=== PATIENT | female | born 1980 | race Caucasian/White ===

== ENCOUNTER 2017-06-26 04:07 | Emergency (ER) | payer OTHER ==
[~2017-06-26] VITALS: Ht 175.3 cm; Wt 78.8 kg
[2017-06-26 04:17] VITALS: TEMP 36.9; Ht 175.3 cm; Wt 78.8 kg
[2017-06-26] MEDS ORDERED: SODIUM CHLORIDE 0.9% 1000ML 1,000 ML IV STA (04:26)
[2017-06-26] MEDS ORDERED: ONDANSETRON INJ 2 MG/ML 2 ML VIAL IV STA (04:26)
[2017-06-26 05:27] LABS: BASO % 0.2 %; BASO ABS # 0.01 K/uL (0-0.2); COMPLETE YES; EOS % 0.7 %; HEMATOCRIT 33.9 % (37-47); IG% 0.2 %; LYMPH ABS # 0.38 K/uL (1.2-3.4); MEAN CELL VOLUME 90.9 fL (80-100); MEAN CORPUSCULAR HEMOGLOBIN 31.9 pg (25-34); MEAN CORPUSCULAR HGB CONC 35.1 g/dl (32-36); MEAN PLATELET VOLUME 9.7 fL (7.4-10.4); MONO % 7.5 %; NEUT % 84.4 %; PLATELET COUNT 115 K/uL (130-400); RED BLOOD COUNT 3.73 M/uL (4.2-5.4); WHITE BLOOD COUNT 5.46 K/uL (4.8-10.8)
[2017-06-26 05:51] LABS: BUN/CREATININE RATIO 12.5 (10-20); CALCIUM 9.5 mg/dl (8.5-10.1); CREATININE 0.79 mg/dl (0.60-1.20); POTASSIUM 3.5 mmol/L (3.5-5.1)
[2017-06-26] MEDS ORDERED: IBUP-1050 PO (05:54)
[2017-06-26] MEDS ORDERED: KETOROLAC TROMETHAMINE 30 MG/ML VIAL IV STA (06:00)
[2017-06-26] MEDS ORDERED: ONDA4TAB10 SL (06:05)
--- NOTE | 2017-06-26 06:06 | EMERGENCY ROOM VISIT NOTE ---
History Report prepared by Surjit: Harvinder Mccabe Under the Supervision of: Dr. Juan Velez D.O. First contact with patient: 04:23 Chief Complaint: FLU LIKE SX Stated Complaint: ABD PAIN,NAUSEA,VOMITING,FEVER, History of Present Illness The patient is a 36 year old female who presents to the Emergency Room with complaints of a persistent illness beginning a few days ago. Her symptoms include abdominal pain, vomiting, nausea, and fevers. She has a history of mono and states that her current symptoms feel similar. The patient has a history of a hysterectomy and denies any chance of . She notes that her urine appears dark. She denies any diarrhea. The patient states that she has not been able to keep down food or drink. Source of History: patient Onset: a few days ago Quality: other (illness) Timing: other (persistent) Associated Symptoms: + fevers, + nausea, + vomiting, + abdominal pain, No diarrhea Review of Systems See HPI for pertinent positives and negatives. A total of ten systems were reviewed and were otherwise negative. 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 (14) Migraines (15) Nausea, vomiting and diarrhea (16) Right arm cellulitis (17) Scoliosis (18) Stomach ulcer Surgical Problems: (1) H/O dilation and curettage (2) History of abdominoplasty Family History Diabetes mellitus FH: heart disease Hypertension Kidney disease Seizures Social History Smoking Status: Never Smoker Alcohol Use: none Drug Use: none Marital Status: in relationship Housing Status: lives with family Occupation Status: employed Current/Historical Medications Scheduled Ondasetron Odt (Zofran Odt), 4 MG SL Q6H Scheduled PRN Ibuprofen (Advil), 400 MG PO Q4 PRN for Pain Allergies Coded Allergies: Latex (Verified Allergy, Severe, rash and itching, 08/28/16) Tramadol (Verified Allergy, Intermediate, Seizure, 08/28/16) Morphine (Verified Allergy, Mild, SEVERE HEADACHE, 08/28/16) Phenobarbital (Verified Allergy, Unknown, RASH, 08/28/16) [place] (Verified Allergy, Unknown, ANAPHYLAXIS, 08/28/16) Acetaminophen (Verified Adverse Reaction, Mild, STOMACH IRRITATION, ) ULCERS Physical Exam Vital Signs Date Time Temp Pulse Resp B/P (MAP) Pulse Ox O2 Delivery O2 Flow Rate FiO2 06/26/17 05:14 92 18 125/91 99 Room Air 06/26/17 04:39 92 06/26/17 04:17 36.9 99 18 130/88 100 Room Air Physical Exam GENERAL: Awake, alert, well-appearing, in no distress HENT: Normocephalic, atraumatic. Oropharynx unremarkable. EYES: Normal conjunctiva. Sclera non-icteric. NECK: Supple. No nuchal rigidity. FROM. No JVD. RESPIRATORY: Clear to auscultation. CARDIAC: Regular rate, normal rhythm. Extremities warm and well perfused. Pulses equal. ABDOMEN: Soft, non-distended. No tenderness to palpation. No rebound or guarding. No masses. RECTAL: Deferred. MUSCULOSKELETAL: Chest examination reveals no tenderness. The back is symmetrical on inspection without obvious abnormality. There is no CVA tenderness to palpation. No joint edema. LOWER EXTREMITIES: Calves are equal size bilaterally and non-tender. No edema. No discoloration. NEURO: Normal sensorium. No sensory or motor deficits noted. SKIN: No rash or jaundice noted. Medical Decision & Procedures Laboratory Results 06/26/17 05:00 Red Blood Count 3.73, Mean Corpuscular Volume 90.9, Mean Corpuscular Hemoglobin 31.9, Mean Corpuscular Hemoglobin Concent 35.1, Mean Platelet Volume 9.7, Neutrophils (%) (Auto) 84.4, Lymphocytes (%) (Auto) 7.0, Monocytes (%) (Auto) 7.5, Eosinophils (%) (Auto) 0.7, Basophils (%) (Auto) 0.2, Neutrophils # (Auto) 4.61, Lymphocytes # (Auto) 0.38, Monocytes # (Auto) 0.41, Eosinophils # (Auto) 0.04, Basophils # (Auto) 0.01 06/26/17 05:00 Test 06/26/17 04:26 06/26/17 05:00 White Blood Count 5.46 K/uL (4.8-10.8) Red Blood Count 3.73 M/uL (4.2-5.4) Hemoglobin 11.9 g/dL (12.0-16.0) Hematocrit 33.9 % (37-47) Mean Corpuscular Volume 90.9 fL (80-100) Mean Corpuscular Hemoglobin 31.9 pg (25-34) Mean Corpuscular Hemoglobin Concent 35.1 g/dl (32-36) Platelet Count 115 K/uL (130-400) Mean Platelet Volume 9.7 fL (7.4-10.4) Neutrophils (%) (Auto) 84.4 % Lymphocytes (%) (Auto) 7.0 % Monocytes (%) (Auto) 7.5 % Eosinophils (%) (Auto) 0.7 % Basophils (%) (Auto) 0.2 % Neutrophils # (Auto) 4.61 K/uL (1.4-6.5) Lymphocytes # (Auto) 0.38 K/uL (1.2-3.4) Monocytes # (Auto) 0.41 K/uL (0.11-0.59) Eosinophils # (Auto) 0.04 K/uL (0-0.5) Basophils # (Auto) 0.01 K/uL (0-0.2) RDW Standard Deviation 42.7 fL (36.4-46.3) RDW Coefficient of Variation 12.9 % (11.5-14.5) Immature Granulocyte % (Auto) 0.2 % Immature Granulocyte # (Auto) 0.01 K/uL (0.00-0.02) Anion Gap 5.0 mmol/L (3-11) Est Creatinine Clear Calc Drug Dose 103.9 ml/min Estimated GFR () 112.4 Estimated GFR (Non- 97.0 BUN/Creatinine Ratio 12.5 (10-20) Calcium Level 9.5 mg/dl (8.5-10.1) Total Bilirubin 1.0 mg/dl (0.2-1) Direct Bilirubin 0.2 mg/dl (0-0.2) Aspartate Amino Transf (AST/SGOT) 56 U/L (15-37) Alanine Aminotransferase (ALT/SGPT) 47 U/L (12-78) Alkaline Phosphatase 64 U/L (45-117) Total Protein 7.3 gm/dl (6.4-8.2) Albumin 3.5 gm/dl (3.4-5.0) Lipase 64 U/L (73-393) Laboratory results reviewed by me Medications Administered Medications (Trade) Dose Ordered Sig/Radha Route Start Time Stop Time Status Last Admin Dose Admin Sodium Chloride 1,000 ml @ 999 mls/hr Q1H1M STAT IV 06/26/17 04:26 06/26/17 05:26 DC 06/26/17 05:15 999 MLS/HR Ondansetron HCl (Zofran Inj) 4 mg NOW STAT IV 06/26/17 04:26 06/26/17 04:28 DC 06/26/17 05:15 4 MG ED Course 0424: The patient was evaluated in room A10. A complete history and physical exam was performed. 0426: Ordered Zofran Inj 4 mg IV, Sodium Chloride 1000 ml @ 999 mls/hr IV. 0600: I reevaluated the patient. Discussed results and discharge instructions: she verbalized understanding and agreement. The patient is ready for discharge. Medical Decision Differential diagnoses include but are not limited to; gastritis, gastroenteritis, UTI, dehydration, and metabolic derangement. Patient reevaluated resting in no distress states slight left flank pain. Vital signs are absolutely normal. Patient has a normal white blood cell count normal electrolytes and normal lactic acid I do not suspect sepsis. Patient's prior records were reviewed she has an extensive history. I reviewed the evaluation with the patient at bedside at 6:05 AM Patient urine dip was negative for any signs of infection. Patient will be discharged with Zofran and requires follow-up with her primary care physician this week Impression Primary Impression: Nausea & vomiting Additional Impression: Abdominal pain Scribe Attestation The scribe's documentation has been prepared under my direction and personally reviewed by me in its entirety. I confirm that the note above accurately reflects all work, treatment, procedures, and medical decision making performed by me. Departure Information Dispostion Home / Self-Care Prescriptions Ondasetron Odt (ZOFRAN ODT) 4 Mg Tab 4 MG SL Q6H for Nausea, #10 TAB Prov: Juan Velez, DO 06/26/17 Referrals Augusta Barakat (PCP) Patient Instructions ED Nausea Vomiting, My [facility] Health Problem Qualifiers
[2017-06-26] MEDS ORDERED: ONDANSETRON HOME PACK 4MG OD TAB PO ONE (06:15)
[2017-06-26 06:18] VITALS: BP 129/91; PULSE 84; O2SAT 97
[2017-06-26 06:24] LABS: URINE APPEARANCE CLEAR (CLEAR); URINE BILIRUBIN NEG (NEG); URINE COLOR YELLOW; URINE NITRITE NEG (NEG); URINE PH 6.5 (4.5-7.5); URINE SPECIFIC GRAVITY 1.014 (1.000-1.030); UROBILINOGEN NEG (NEG); ZZUR CULT IF INDIC CLEAN CATCH NO
[2017-06-26 06:42] LABS: MANUAL MICROSCOPIC REQUIRED? NO; REVIEW REQ? NO
== END 2017-06-26 06:23 | disposition home or self-care (01) ==
LOC: C.EDB 04:08 → C.EDA 06:23
DX: R11.2 Nausea with vomiting, unspecified (principal); R10.9 Unspecified abdominal pain; Z90.710 Acquired absence of both cervix and uterus; Z83.3 Family history of diabetes mellitus; Z82.49 Family history of ischemic heart disease and other diseases of the circulatory system; Z82.0 Family history of epilepsy and other diseases of the nervous system

== ENCOUNTER 2017-07-12 16:18 | Emergency (ER) | payer OTHER ==
[~2017-07-12] VITALS: Ht 175.3 cm; Wt 78.0 kg
[~2017-07-12 16:18] MED LIST: IBUP-1050 PO; ONDA4TAB10 SL
[2017-07-12 16:38] VITALS: Ht 175.3 cm; Wt 78.0 kg
[2017-07-12] MEDS ORDERED: SODIUM CHLORIDE 0.9% 1000ML 2,000 ML IV STA (16:56)
[2017-07-12] MEDS ORDERED: ACETAMINOPHEN IV 1,000 MG in EMPTY BAG 0 ML IV STA (16:56)
[2017-07-12] MEDS ORDERED: ONDANSETRON INJ 2 MG/ML 2 ML VIAL IV STA (16:56)
[2017-07-12] MEDS ORDERED: SODIUM CHLORIDE 0.9% 1000ML 1,000 ML IV STA (16:56)
[2017-07-12 17:19] LABS: HEMATOCRIT 28.5 % (37-47); MEAN CELL VOLUME 90.5 fL (80-100); MEAN CORPUSCULAR HEMOGLOBIN 30.5 pg (25-34); MEAN CORPUSCULAR HGB CONC 33.7 g/dl (32-36); MEAN PLATELET VOLUME 9.1 fL (7.4-10.4); PLATELET COUNT 214 K/uL (130-400); RED BLOOD COUNT 3.15 M/uL (4.2-5.4); WHITE BLOOD COUNT 8.91 K/uL (4.8-10.8)
[2017-07-12 17:30] LABS: BUN/CREATININE RATIO 13.4 (10-20); CREATININE 0.67 mg/dl (0.60-1.20); POTASSIUM 3.8 mmol/L (3.5-5.1)
[2017-07-12 17:33] LABS: ALB/GLOB RATIO 0.8 (0.9-2); URINE APPEARANCE CLEAR (CLEAR); URINE BILIRUBIN NEG (NEG); URINE COLOR YELLOW; URINE NITRITE NEG (NEG); URINE PH 5.5 (4.5-7.5); URINE SPECIFIC GRAVITY 1.013 (1.000-1.030); UROBILINOGEN NEG (NEG)
[2017-07-12 17:38] LABS: MANUAL MICROSCOPIC REQUIRED? NO; REVIEW REQ? NO
--- NOTE | 2017-07-12 17:41 | DIAGNOSTIC IMAGING REPORT ---
CHEST ONE VIEW PORTABLE HISTORY: FEVER COMPARISON: Chest 08/28/2016. FINDINGS: The lungs are clear. Cardiac silhouette is top normal in size. This remains unchanged. No pleural effusions. No pneumothorax. IMPRESSION: No acute process. Electronically signed by: Mir Moore M.D. 07/12/2017 5:39 PM Dictated Date/Time: 07/12/2017 5:38 PM
[2017-07-12 17:50] LABS: BASO % 0.2 %; BASO ABS # 0.02 K/uL (0-0.2); COMPLETE YES; IG% 0.6 %; LYMPH % 5.3 %; LYMPH ABS # 0.47 K/uL (1.2-3.4); MONO % 4.6 %; NEUT % 89.3 %
[2017-07-12] MEDS ORDERED: HYDROmorphone INJ 0.5 MG/0.5 ML SYR IV STA (17:55)
[2017-07-12] MEDS ORDERED: OPTIRAY 320 IV PRN (18:15)
--- NOTE | 2017-07-12 18:35 | DIAGNOSTIC IMAGING REPORT ---
CT ABD/PELVIS IV CONTRAST ONLY CLINICAL HISTORY: FEVER, ABD PAIN COMPARISON STUDY: 09/02/2016 TECHNIQUE: Following the IV administration of 94 mL of Optiray-320, CT scan of the abdomen and pelvis was performed from the lung bases to the proximal femurs. Images are reviewed in the axial, sagittal, and coronal planes. IV contrast was administered without complication. A dose lowering technique was utilized adhering to the principles of ALARA. CT DOSE: 502.23 mGy.cm FINDINGS: Lower chest: There are minor dependent atelectatic changes Liver: The contrast-enhanced liver is normal in size, contour, and attenuation. There is no intrahepatic biliary ductal dilatation. The hepatic veins and portal veins are patent. Gallbladder: Unremarkable. Spleen: There is persistent splenomegaly (15 cm), previously 14 cm. Pancreas: Unremarkable. Adrenal glands: Unremarkable. Kidneys: There is a stable left renal hypodensity likely representing a cyst. No solid renal masses are visualized. Bowel: There are no transition zones indicate bowel obstruction. The appendix appears normal. There is no acute diverticulitis. Peritoneum: There is no intraperitoneal free air or abdominal ascites. Vasculature: The abdominal aorta is normal in course and caliber. Adenopathy: None. Pelvic viscera: The uterus appears surgically absent. There is slight indistinctness of the right ovary. Mild periovarian edema cannot be excluded. Skeletal structures: No destructive osseous lesions are seen. IMPRESSION: 1. No evidence of bowel obstruction. No evidence of free air 2. Normal appendix. No evidence of acute diverticulitis 3. Splenomegaly (15 cm) 4. Slight indistinctness of the right ovary. Mild right periovarian edema cannot be excluded Electronically signed by: Hilario Brian M.D. 07/12/2017 6:33 PM Dictated Date/Time: 07/12/2017 6:26 PM
[2017-07-12 18:58] VITALS: TEMP 37.1
[2017-07-12] MEDS ORDERED: DAPTOmycin IV 500 MG in SODIUM CHLORIDE 0.9% 50ML 50 ML IV STA (19:17)
[2017-07-12] MEDS ORDERED: PIPERACILLIN/TAZOBACTAM 4.5 GM/100ML D5W IV STA (19:17)
[2017-07-12] MEDS ORDERED: VANCOMYCIN INJ 1,500 MG in SODIUM CHLORIDE 0.9% 500ML 500 ML IV STA (19:30)
[2017-07-12 19:47] LABS: PROTHROMBIN TIME (PATIENT) 11.1 SECONDS (9.0-12.0)
[2017-07-12] MEDS ORDERED: GADAVIST IV PRN (22:00)
--- NOTE | 2017-07-12 22:11 | DIAGNOSTIC IMAGING REPORT ---
MRI LUMBAR SPINE COMBINATION CLINICAL HISTORY: FEVER, BACK PAIN HISTORY OF MALT LYMPHOMA, HISTORY OF CERVICAL CARCINOMA. TECHNIQUE: Sagittal and axial T1, T2 and STIR images were obtained. Imaging was performed before and after the administration of 7.7 cc of intravenous Gadavist COMPARISON STUDY: CT scan of the abdomen pelvis dated 07/12/2017 OBSERVATIONS: There is diffuse decreased signal throughout the vertebral bodies. This indicates a hypercellular marrow. This could be secondary to neoplasm, anemia, or be secondary to drug-induced marrow stimulation. L1-2: No disc protrusions or extrusions. No evidence of spinal canal or neural foraminal compromise. L2-3: No disc protrusions or extrusions. No evidence of spinal canal or neural foraminal compromise. L3-4: No disc protrusions or extrusions. No evidence of spinal canal or neural foraminal compromise. L4-5: There is a minimal circumferential disc bulge. There is no significant spinal or foraminal stenosis. L5-S1: No disc protrusions or extrusions. No evidence of spinal canal or neural foraminal compromise. The conus medullaris and cauda equina appear normal. Postcontrast images reveal no pathologically enhancing masses. There are no findings to indicate discitis or osteomyelitis. There are no findings to indicate an epidural abscess. IMPRESSION: 1. No evidence of focal disc herniation 2. No evidence of discitis or osteomyelitis. 3. No evidence of epidural abscess 4. Diffusely decreased T1 signal throughout the marrow. This indicates an abnormally hypercellular marrow. Clinical correlation in this regard is advocated Electronically signed by: Hilario Brian M.D. 07/12/2017 10:10 PM Dictated Date/Time: 07/12/2017 10:04 PM
--- NOTE | 2017-07-12 22:38 | EMERGENCY ROOM VISIT NOTE ---
History First contact with patient: 16:43 Chief Complaint: SHORTNESS OF BREATH Stated Complaint: NAUSEA,VOMITING,SPASM IN BACK OF NEC,SOB Nursing Triage Summary: Patient presents with a 1.5 day history of generalized malaise b/l flank/back pain, diffuse abdominal pain, nausea/vomiting and fevers. Negative diarrhea. Negative cough. Patient tearful during exam. Scabs on left arm consistent with injection points observed. Additional "cat scratches" are noted on right arm. History of Present Illness Patient is a 36-year-old white female who presents emergency department for evaluation of abdominal pain, back and neck pain, nausea, vomiting and malaise 1 day. Patient states her symptoms started yesterday with back and abdominal pain. They got progressively worse while she was at work today. She describes pain across her low back, and in the posterior aspect of her neck, and diffuse pain across the abdomen. While at work should be and experienced hot flashes, and became nauseous and vomited several times. She reports yellow vomitus, no diarrhea. She's been using ibuprofen 800 mg for her pain, her last dose was about 4-1/2 hours ago. She did not actually record her temperature with a thermometer. She notes that her urine is dark but denies dysuria, frequency or urgency. She denies any cold or upper respiratory symptoms, no cough or sputum production. She feels slightly short of breath but attributes this to her pain. She did take Zofran about one hour ago. She denies any sick contacts. No skin rashes or lesions other than some scratches on her arms from her cat. She denies IV drug use. No recent insect or tick bites. She rates her discomfort an 8/10. She has been followed by her PCP recently for abnormal LFTs , she reports she is scheduled to see GI next month. Review of Systems Review of systems as per HPI. All other systems reviewed were negative. 10 systems reviewed. 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 See Problem List. Family History Diabetes mellitus FH: heart disease Hypertension Kidney disease Seizures Social History Smoking Status: Never Smoker Alcohol Use: none Drug Use: none Marital Status: in relationship Housing Status: lives with family Occupation Status: employed Current/Historical Medications Scheduled Ondasetron Odt (Zofran Odt), 4 MG SL Q6H Physical Exam Vital Signs Date Time Temp Pulse Resp B/P (MAP) Pulse Ox O2 Delivery O2 Flow Rate FiO2 07/12/17 22:26 98 12 90/42 98 07/12/17 21:04 74 10 108/78 98 07/12/17 20:36 75 98 07/12/17 20:01 90 20 100 07/12/17 19:31 100 22 99 07/12/17 19:29 105/66 07/12/17 19:01 91 20 99 07/12/17 18:58 37.1 74 20 114/70 99 07/12/17 18:56 115/63 07/12/17 17:55 103 07/12/17 17:52 94 07/12/17 17:48 99 20 98 07/12/17 17:37 104 20 112/69 100 Room Air 07/12/17 17:36 112/69 07/12/17 17:18 105 21 98 07/12/17 16:57 122 07/12/17 16:50 138/72 07/12/17 16:38 39.3 116 20 109/62 98 Room Air Physical Exam CONSTITUTIONAL: Patient is a tearful, uncomfortable appearing 36-year-old white female who is awake and alert and ill although nontoxic in appearance. Temperature 39.3C orally. Pulse rate 116 beats per minute, oxygen saturation 98% on room air. EYES: Pupils equal, round, reactive to light and accommodation. EOMs intact without nystagmus. Sclera are anicteric. ENT: Tympanic membranes intact, with normal landmarks. External canals are clear. Oral and nasopharynx are clear. Mucous membranes are moist, no lesions , tongue and gums appear normal. NECK: No bruits auscultated. Supple without lymphadenopathy. No thyromegaly. No meningeal signs. Full active range of motion without discomfort. CARDIOVASCULAR: Tachycardic rate and rhythm, with normal S1 and S2, no murmur or gallop or rub is heard. No carotid bruits auscultated. No JVD. Peripheral pulses easy to palpable. RESPIRATORY: Breath sounds equal and clear to auscultation without wheezes, rales, or rhonchi heard. Full and equal chest expansion without accessory muscle use or retractions. GI: Bowel sounds are present. Abdomen is soft, nondistended, slightly tender in the left mid abdomen without guarding or rebound. No organomegaly. No pulsatile masses. MUSCULOSKELETAL: Full range of motion of extremities x 4 with good strength. No cyanosis, edema, joint tenderness or swelling. No deformity. Examination of the patient's back does not demonstrate any erythema, no increased warmth or induration. She is diffusely tender over the spinous processes and the paraspinous musculature in the lumbar area. INTEGUMENTARY: Healing scratches noted on the wrists bilaterally. No signs of infection. NEUROLOGICAL: Alert, oriented, and cooperative. Cranial nerves, sensation and strength grossly intact. Pupils round, equal, and react to light, EOMs are full. LYMPH: No lymphadenopathy. Medical Decision & Procedures ER Provider Diagnostic Interpretation: MRI LUMBAR SPINE COMBINATION CLINICAL HISTORY: FEVER, BACK PAIN HISTORY OF MALT LYMPHOMA, HISTORY OF CERVICAL CARCINOMA. TECHNIQUE: Sagittal and axial T1, T2 and STIR images were obtained. Imaging was performed before and after the administration of 7.7 cc of intravenous Gadavist COMPARISON STUDY: CT scan of the abdomen pelvis dated 07/12/2017 OBSERVATIONS: There is diffuse decreased signal throughout the vertebral bodies. This indicates a hypercellular marrow. This could be secondary to neoplasm, anemia, or be secondary to drug-induced marrow stimulation. L1-2: No disc protrusions or extrusions. No evidence of spinal canal or neural foraminal compromise. L2-3: No disc protrusions or extrusions. No evidence of spinal canal or neural foraminal compromise. L3-4: No disc protrusions or extrusions. No evidence of spinal canal or neural foraminal compromise. L4-5: There is a minimal circumferential disc bulge. There is no significant spinal or foraminal stenosis. L5-S1: No disc protrusions or extrusions. No evidence of spinal canal or neural foraminal compromise. The conus medullaris and cauda equina appear normal. Postcontrast images reveal no pathologically enhancing masses. There are no findings to indicate discitis or osteomyelitis. There are no findings to indicate an epidural abscess. IMPRESSION: 1. No evidence of focal disc herniation 2. No evidence of discitis or osteomyelitis. 3. No evidence of epidural abscess 4. Diffusely decreased T1 signal throughout the marrow. This indicates an abnormally hypercellular marrow. Clinical correlation in this regard is advocated. CT ABD/PELVIS IV CONTRAST ONLY CLINICAL HISTORY: FEVER, ABD PAIN COMPARISON STUDY: 09/02/2016 TECHNIQUE: Following the IV administration of 94 mL of Optiray-320, CT scan of the abdomen and pelvis was performed from the lung bases to the proximal femurs. Images are reviewed in the axial, sagittal, and coronal planes. IV contrast was administered without complication. A dose lowering technique was utilized adhering to the principles of ALARA. CT DOSE: 502.23 mGy.cm FINDINGS: Lower chest: There are minor dependent atelectatic changes Liver: The contrast-enhanced liver is normal in size, contour, and attenuation. There is no intrahepatic biliary ductal dilatation. The hepatic veins and portal veins are patent. Gallbladder: Unremarkable. Spleen: There is persistent splenomegaly (15 cm), previously 14 cm. Pancreas: Unremarkable. Adrenal glands: Unremarkable. Kidneys: There is a stable left renal hypodensity likely representing a cyst. No solid renal masses are visualized. Bowel: There are no transition zones indicate bowel obstruction. The appendix appears normal. There is no acute diverticulitis. Peritoneum: There is no intraperitoneal free air or abdominal ascites. Vasculature: The abdominal aorta is normal in course and caliber. Adenopathy: None. Pelvic viscera: The uterus appears surgically absent. There is slight indistinctness of the right ovary. Mild periovarian edema cannot be excluded. Skeletal structures: No destructive osseous lesions are seen. IMPRESSION: 1. No evidence of bowel obstruction. No evidence of free air 2. Normal appendix. No evidence of acute diverticulitis 3. Splenomegaly (15 cm) 4. Slight indistinctness of the right ovary. Mild right periovarian edema cannot be excluded. CHEST ONE VIEW PORTABLE HISTORY: FEVER COMPARISON: Chest 08/28/2016. FINDINGS: The lungs are clear. Cardiac silhouette is top normal in size. This remains unchanged. No pleural effusions. No pneumothorax. IMPRESSION: No acute process. Laboratory Results 07/12/17 17:00 Red Blood Count 3.15, Mean Corpuscular Volume 90.5, Mean Corpuscular Hemoglobin 30.5, Mean Corpuscular Hemoglobin Concent 33.7, Mean Platelet Volume 9.1, Neutrophils (%) (Auto) 89.3, Lymphocytes (%) (Auto) 5.3, Monocytes (%) (Auto) 4.6, Eosinophils (%) (Auto) 0.0, Basophils (%) (Auto) 0.2, Neutrophils # (Auto) 7.96, Lymphocytes # (Auto) 0.47, Monocytes # (Auto) 0.41, Eosinophils # (Auto) 0.00, Basophils # (Auto) 0.02 07/12/17 17:00 Test 07/12/17 17:00 07/12/17 17:08 White Blood Count 8.91 K/uL (4.8-10.8) Red Blood Count 3.15 M/uL (4.2-5.4) Hemoglobin 9.6 g/dL (12.0-16.0) Hematocrit 28.5 % (37-47) Mean Corpuscular Volume 90.5 fL (80-100) Mean Corpuscular Hemoglobin 30.5 pg (25-34) Mean Corpuscular Hemoglobin Concent 33.7 g/dl (32-36) Platelet Count 214 K/uL (130-400) Mean Platelet Volume 9.1 fL (7.4-10.4) Neutrophils (%) (Auto) 89.3 % Lymphocytes (%) (Auto) 5.3 % Monocytes (%) (Auto) 4.6 % Eosinophils (%) (Auto) 0.0 % Basophils (%) (Auto) 0.2 % Neutrophils # (Auto) 7.96 K/uL (1.4-6.5) Lymphocytes # (Auto) 0.47 K/uL (1.2-3.4) Monocytes # (Auto) 0.41 K/uL (0.11-0.59) Eosinophils # (Auto) 0.00 K/uL (0-0.5) Basophils # (Auto) 0.02 K/uL (0-0.2) RDW Standard Deviation 42.5 fL (36.4-46.3) RDW Coefficient of Variation 13.4 % (11.5-14.5) Immature Granulocyte % (Auto) 0.6 % Immature Granulocyte # (Auto) 0.05 K/uL (0.00-0.02) Prothrombin Time 11.1 SECONDS (9.0-12.0) Prothromb Time International Ratio 1.0 (0.9-1.1) Activated Partial Thromboplast Time 25.1 SECONDS (21.0-31.0) Partial Thromboplastin Ratio 1.0 Urine Color YELLOW Urine Appearance CLEAR (CLEAR) Urine pH 5.5 (4.5-7.5) Urine Specific [place] 1.013 (1.000-1.030) Urine Protein NEG (NEG) Urine Glucose (UA) NEG (NEG) Urine Ketones TRACE (NEG) Urine Occult Blood NEG (NEG) Urine Nitrite NEG (NEG) Urine Bilirubin NEG (NEG) Urine Urobilinogen NEG (NEG) Urine Leukocyte Esterase NEG (NEG) Anion Gap 8.0 mmol/L (3-11) Est Creatinine Clear Calc Drug Dose 122.5 ml/min Estimated GFR () 132.0 Estimated GFR (Non- 113.9 BUN/Creatinine Ratio 13.4 (10-20) Calcium Level 8.0 mg/dl (8.5-10.1) Total Bilirubin 1.4 mg/dl (0.2-1) Aspartate Amino Transf (AST/SGOT) 28 U/L (15-37) Alanine Aminotransferase (ALT/SGPT) 45 U/L (12-78) Alkaline Phosphatase 116 U/L (45-117) Total Protein 7.3 gm/dl (6.4-8.2) Albumin 3.3 gm/dl (3.4-5.0) Globulin 4.0 gm/dl (2.5-4.0) Albumin/Globulin Ratio 0.8 (0.9-2) Lipase 57 U/L (73-393) Bedside Lactic Acid Venous 0.85 mmol/L (0.90-1.70) Medications Administered Medications (Trade) Dose Ordered Sig/Radha Route Start Time Stop Time Status Last Admin Dose Admin Sodium Chloride 2,000 ml @ 999 mls/hr Q2H1M STAT IV 07/12/17 16:56 07/12/17 18:56 DC 07/12/17 17:40 999 MLS/HR Sodium Chloride 1,000 ml @ 250 mls/hr Q4H STAT IV 07/12/17 16:56 07/12/17 20:55 DC 07/12/17 18:11 250 MLS/HR Acetaminophen 1000 mg/Empty Bag 100 ml @ 400 mls/hr ONE STAT IV 07/12/17 16:56 07/12/17 17:10 DC 07/12/17 17:40 400 MLS/HR Ondansetron HCl (Zofran Inj) 4 mg NOW STAT IV 07/12/17 16:56 07/12/17 16:59 DC 07/12/17 17:40 4 MG Hydromorphone HCl (Dilaudid Inj) 0.5 mg NOW STAT IV 07/12/17 17:55 07/12/17 17:57 DC 07/12/17 18:11 0.5 MG Piperacillin Sod/ Tazobactam Sod (Zosyn Iv) 4.5 gm NOW STAT IV 07/12/17 19:17 07/12/17 19:22 DC 07/12/17 19:31 4.5 GM Vancomycin HCl 1500 mg/Sodium Chloride 530 ml @ 200 mls/hr ONE STAT IV 07/12/17 19:30 07/12/17 22:08 DC 07/12/17 20:04 200 MLS/HR ECG Indication: toxicologic Rate (beats per minute): 104 Rhythm: sinus tachycardia Findings: no acute ischemic change, no ectopy Change: no significant change ED Course The patient was seen and evaluated as above. Her old records are reviewed. She presents the emergency department for evaluation of several vague complaints including back and abdominal pain, nausea and vomiting, and was found to be febrile upon arrival with a temperature of 39.3C orally. IV lock was initiated. She was hydrated with a 2 L bolus of normal saline solution. She was given Zofran 4 mg IV for nausea and acetaminophen 1 g IV for her fever. Laboratory studies were collected including urinalysis, blood culture 2, CBC with differential, CMP, lipase and [id number] lactic acid. Chest x-ray was obtained and was unremarkable. Laboratory studies noted a normal white count at 8900, she is slightly anemic, H &H 9.6 and 28.5, but this is chronic for the patient and appears stable. Platelet count is normal. PT/INR are not elevated. Chemistries reveal no gross electrolyte imbalance. Renal functions are normal. She has a slight elevation of her total bilirubin, transaminases and lipase are normal. Her lactic acid is 0.85, and therefore not felt to be indicative of lactic acidosis. Urinalysis is clear without signs of infection. The patient was reassessed after her laboratory studies and her chest x-ray. She continued to complain of back pain. She was given Dilaudid 0.5 mg IV. Given her abdominal pain and vomiting, CT scan of the abdomen and pelvis with IV contrast was ordered, and was without acute pathology. Stable splenomegaly was noted, there is no evidence of bowel obstruction, free air, appendicitis or diverticulitis. There was slight indistinctness of the right ovary, edema could not be excluded. On exam the patient did not have any right-sided abdominal discomfort. The patient was reassessed and made aware of the results of her laboratory and diagnostic imaging studies. Temperature was now 37.1C orally, she was no longer tachycardic, having responded nicely to antipyretics and hydration. She continued to complain of back pain. All laboratory and diagnostic imaging studies are reviewed with attending physician who also independently evaluated the patient. There is no clear source of her fever, certainly viral etiology was entertained, however given the severe presentation of her back pain, MRI of the lumbar spine was ordered to evaluate for infectious process such as discitis or epidural abscess. The patient was empirically treated with Zosyn 4.5 g and vancomycin 1500 mg IV. Patient tolerated the IV antibiotics without difficulty. Lumbar spine MRI was obtained, and was without evidence for discitis, osteomyelitis, epidural abscess or focal disc herniation. Diffusely decreased T1 signal throughout the marrow indicated abnormally hypercellular marrow, possibilities included anemia , drug-induced marrow suppression or neoplasm, and clinical correlation was advised. I suspect anemia as the source of the findings given her history. The patient was reassessed when she returned from MRI. She was made aware of the results of her MRI, and again all laboratory and diagnostic imaging studies were reviewed with her at length. Vital signs are stable and she remained afebrile. I suspect a viral illness, given the extensive negative ED workup. She has no nuchal rigidity to suspect meningitis. Her abdominal exam is benign. She does not have any neurologic deficits. Differential diagnoses entertained included UTI, pyelonephritis, viral illness, sepsis, bowel obstruction, perforation, intra-abdominal abscess, diverticulitis, meningitis, encephalitis, epidural abscess, osteomyelitis, discitis, among others. The patient will be discharged home into the care of her significant other. Conservative care measures were advised. She was advised to follow-up with her primary care provider this week for recheck from her ED visit. Medical Decision See emergency Department course [place] Drug Monitoring Program Search Results: patient reviewed within database, no issues identified Medication Reconcilliation Current Medication List: was personally reviewed by me Blood Pressure Screening Patient's blood pressure: Normal blood pressure Impression Primary Impression: Acute febrile illness Additional Impressions: Back pain Left sided abdominal pain Nausea and vomiting Departure Information Referrals Augusta Barakat (PCP) Patient Instructions [facility] Additional Instructions DO NOT drive, drink alcohol, operate machinery, or perform dangerous activities today. You were given medications in the ER that can affect your ability to safely function or operate a vehicle. Ibuprofen(Motrin, Advil) may be used for fever or pain. Use 600mg every six hours as needed. Take with food. Avoid using more than 2400mg in a 24 hour period. Do not use 2400mg per day for more than three consecutive days without physician direction. Prolonged inappropriate use can lead to stomach upset or ulcers. Rest and drink plenty of fluids as tolerated. Slow sips of water or sports drinks are recommended instead of large amounts all at once. Continue current medications. Once your stomach is settled start with a clear liquid diet (jello, soup broth, etc.) and then advance as tolerated. You should avoid full, heavy meals for about 24 hrs from the time your symptoms resolved. Return to the ER for persistent vomiting, fevers greater than 103, worsening abdominal pain, chest pains, difficulty breathing, black or bloody stools, worsening of your condition, or as needed. Follow up with your primary physician in 2-3 days for a recheck of your current condition. Problem Qualifiers Additional Impressions: Back pain Back pain location: low back pain Chronicity: acute Back pain laterality: bilateral Sciatica presence: without sciatica Qualified Codes: M54.5 - Low back pain Nausea and vomiting Vomiting type: unspecified Vomiting Intractability: non-intractable Qualified Codes: R11.2 - Nausea with vomiting, unspecified
[2017-07-13 00:06] VITALS: BP 102/64; PULSE 74; O2SAT 98
== END 2017-07-13 00:12 | disposition home or self-care (01) ==
LOC: C.EDB 16:19
DX: R10.30 Lower abdominal pain, unspecified (principal); R50.9 Fever, unspecified; R11.2 Nausea with vomiting, unspecified; M54.9 Dorsalgia, unspecified; R00.0 Tachycardia, unspecified; N83.202 Unspecified ovarian cyst, left side; N80.9 Endometriosis, unspecified; G40.909 Epilepsy, unspecified, not intractable, without status epilepticus; Z87.440 Personal history of urinary (tract) infections; Z86.19 Personal history of other infectious and parasitic diseases; Z87.11 Personal history of peptic ulcer disease; Z90.710 Acquired absence of both cervix and uterus; Z90.721 Acquired absence of ovaries, unilateral; Z83.3 Family history of diabetes mellitus; Z82.49 Family history of ischemic heart disease and other diseases of the circulatory system; Z84.1 Family history of disorders of kidney and ureter; Z82.0 Family history of epilepsy and other diseases of the nervous system

== ENCOUNTER 2017-09-24 22:24 | Emergency (ER) | payer OTHER ==
[~2017-09-24 22:24] MED LIST changes: -IBUP-1050 PO
[2017-09-24 22:27] VITALS: TEMP 36.8; Ht 175.3 cm
[2017-09-24] MEDS ORDERED: PROMETHAZINE HCL INJ 25 MG/ML 1 ML VIAL IV STA (22:34)
[2017-09-24] MEDS ORDERED: PROMETHAZINE HCL INJ 12.5 MG in SODIUM CHLORIDE 0.9% 50ML 50 ML IV SCH (22:34)
[2017-09-24] MEDS ORDERED: KETOROLAC TROMETHAMINE 30 MG/ML VIAL IV STA (22:34)
[2017-09-24] MEDS ORDERED: HYDROmorphone INJ 2 MG/ML SYR/VIAL IV PRN (22:45)
--- NOTE | 2017-09-24 22:47 | EMERGENCY ROOM VISIT NOTE ---
History Report prepared by Surjit: Alejandra Brambila Under the Supervision of: Dr. Justo Andrea M.D. First contact with patient: 22:31 Chief Complaint: ABDOMINAL PAIN Stated Complaint: S/P GALL BLADDER REMOVAL, SHARP PAINS IN ABDOMEN History of Present Illness The patient is a 37 year old female who presents to the Emergency Room with complaints of sudden sharp severe right upper abdominal pain beginning 6 hours ago. The patient had her cholecystectomy with a liver biopsy because her gallbladder wasn't functioning properly. Dr. Robbins did the patient's cholecystectomy procedure in [place] 4 days ago. She has nausea, vomiting, and some diarrhea. The patient's pain worsens when she lies down. She denies any falls or trauma. Source of History: patient Onset: 6 hours ago Position: abdomen (RUQ) Symptom Intensity: severe Quality: sharp Modifying Factors (Worsening): other (laying down) Associated Symptoms: + nausea, + vomiting, + diarrhea Review of Systems See HPI for pertinent positives & negatives. A total of 10 systems reviewed and were otherwise negative. 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 (21) Migraines (22) Nausea & vomiting (23) Nausea, vomiting and diarrhea (24) Right arm cellulitis (25) Scoliosis (26) Stomach ulcer (27) Symptomatic anemia (28) Thrombocytopenia (29) UTI (urinary tract infection) (30) Vision loss Surgical Problems: (1) H/O dilation and curettage (2) History of abdominoplasty (3) Status post abdominal hysterectomy and right salpingo-oophorectomy Family History Diabetes mellitus FH: heart disease Hypertension Kidney disease Seizures Social History Smoking Status: Never Smoker Alcohol Use: none Drug Use: none Marital Status: in relationship Housing Status: lives with family Occupation Status: employed Current/Historical Medications Scheduled Omeprazole (Prilosec), 1 CAP PO BID Sennosides-Docusate Sodium (Senokot S), 2 TAB PO BID Scheduled PRN Oxycodone Hcl (Oxycodone Hcl), 1 CAP PO for Severe Pain Allergies Coded Allergies: Latex (Verified Allergy, Severe, rash and itching, 09/24/17) Tramadol (Verified Allergy, Intermediate, Seizure, 09/24/17) Morphine (Verified Allergy, Mild, SEVERE HEADACHE, 09/24/17) Phenobarbital (Verified Allergy, Unknown, RASH, 09/24/17) [place] (Verified Allergy, Unknown, ANAPHYLAXIS, 09/24/17) Acetaminophen (Verified Adverse Reaction, Mild, STOMACH IRRITATION, ) ULCERS Physical Exam Vital Signs Date Time Temp Pulse Resp B/P (MAP) Pulse Ox O2 Delivery O2 Flow Rate FiO2 09/25/17 01:30 104 16 130/78 98 09/25/17 00:30 110 16 143/94 99 Room Air 09/24/17 23:42 111 16 125/83 95 Room Air 09/24/17 22:27 36.8 118 20 132/77 100 Room Air Physical Exam GENERAL: Patient is in significant distress secondary to pain. HEENT: No acute trauma, normocephalic atraumatic, mucous membranes moist, no nasal congestion, no scleral icterus. NECK: No stridor, no adenopathy, no meningismus, trachea is midline. LUNGS: Clear to auscultation bilaterally, no wheeze, no rhonchi, breath sounds equal. HEART: Tachycardic with regular rhythm, no murmurs. ABDOMEN: Soft, tender primarily in right upper quadrant and epigastrium, no hernia or abdominal distension, incisions healing without signs of infection. Abdominal pain worsens when lying flat. EXTREMITIES: No cyanosis or edema, full range of motion of all the joints without pain or difficulty, no signs for acute trauma. NEUROLOGIC: Oriented x 3, no acute motor or sensory deficits, no focal weakness. SKIN: No rash, no jaundice, no diaphoresis. Medical Decision & Procedures ER Provider Diagnostic Interpretation: Radiology results as stated below per my review and radiologist interpretation: CHEST ONE VIEW PORTABLE FINDINGS: The bones soft tissues and hemidiaphragms are normal. The cardiomediastinal silhouette is normal. The lungs are clear. The pulmonary vasculature is normal. IMPRESSION: Negative chest. The above report was generated using voice recognition software. It may contain grammatical, syntax or spelling errors. Electronically signed by: Nikolas Petersen M.D. CT ABDOMEN & PELVIS with contrast: No evidence of bowel obstruction. No free air. Moderate amount of retained stool throughout the colon, suggesting constipation. Appendix is normal. Probable focal fatty deposition near the gallbladder fossa and along the periphery of the left hepatic lobe. Gallbladder is surgically absent. Left corpus luteum cyst. Uterus is surgically absent. Small amount of fluid in the distal esophagus. Correlate for gastroesophageal reflux. Radiologist: Kavin Abarca Laboratory Results 09/24/17 23:00 Red Blood Count 3.89, Mean Corpuscular Volume 92.0, Mean Corpuscular Hemoglobin 31.6, Mean Corpuscular Hemoglobin Concent 34.4, Mean Platelet Volume 9.5, Neutrophils (%) (Auto) 77.4, Lymphocytes (%) (Auto) 15.5, Monocytes (%) (Auto) 5.5, Eosinophils (%) (Auto) 1.4, Basophils (%) (Auto) 0.1, Neutrophils # (Auto) 6.17, Lymphocytes # (Auto) 1.24, Monocytes # (Auto) 0.44, Eosinophils # (Auto) 0.11, Basophils # (Auto) 0.01 09/24/17 23:00 Test 09/24/17 22:48 09/24/17 23:00 Urine Color YELLOW Urine Appearance CLEAR (CLEAR) Urine pH 5.0 (4.5-7.5) Urine Specific [place] 1.014 (1.000-1.030) Urine Protein NEG (NEG) Urine Glucose (UA) NEG (NEG) Urine Ketones NEG (NEG) Urine Occult Blood NEG (NEG) Urine Nitrite NEG (NEG) Urine Bilirubin NEG (NEG) Urine Urobilinogen NEG (NEG) Urine Leukocyte Esterase NEG (NEG) White Blood Count 7.98 K/uL (4.8-10.8) Red Blood Count 3.89 M/uL (4.2-5.4) Hemoglobin 12.3 g/dL (12.0-16.0) Hematocrit 35.8 % (37-47) Mean Corpuscular Volume 92.0 fL (80-100) Mean Corpuscular Hemoglobin 31.6 pg (25-34) Mean Corpuscular Hemoglobin Concent 34.4 g/dl (32-36) Platelet Count 180 K/uL (130-400) Mean Platelet Volume 9.5 fL (7.4-10.4) Neutrophils (%) (Auto) 77.4 % Lymphocytes (%) (Auto) 15.5 % Monocytes (%) (Auto) 5.5 % Eosinophils (%) (Auto) 1.4 % Basophils (%) (Auto) 0.1 % Neutrophils # (Auto) 6.17 K/uL (1.4-6.5) Lymphocytes # (Auto) 1.24 K/uL (1.2-3.4) Monocytes # (Auto) 0.44 K/uL (0.11-0.59) Eosinophils # (Auto) 0.11 K/uL (0-0.5) Basophils # (Auto) 0.01 K/uL (0-0.2) RDW Standard Deviation 49.4 fL (36.4-46.3) RDW Coefficient of Variation 14.7 % (11.5-14.5) Immature Granulocyte % (Auto) 0.1 % Immature Granulocyte # (Auto) 0.01 K/uL (0.00-0.02) Prothrombin Time 10.2 SECONDS (9.0-12.0) Prothromb Time International Ratio 1.0 (0.9-1.1) Activated Partial Thromboplast Time 24.8 SECONDS (21.0-31.0) Partial Thromboplastin Ratio 1.0 Anion Gap 6.0 mmol/L (3-11) Estimated GFR () 124.9 Estimated GFR (Non- 107.7 BUN/Creatinine Ratio 18.1 (10-20) Calcium Level 8.4 mg/dl (8.5-10.1) Total Bilirubin 0.5 mg/dl (0.2-1) Aspartate Amino Transf (AST/SGOT) 14 U/L (15-37) Alanine Aminotransferase (ALT/SGPT) 26 U/L (12-78) Alkaline Phosphatase 68 U/L (45-117) Total Protein 7.8 gm/dl (6.4-8.2) Albumin 3.7 gm/dl (3.4-5.0) Globulin 4.1 gm/dl (2.5-4.0) Albumin/Globulin Ratio 0.9 (0.9-2) Lipase 91 U/L (73-393) Human Chorionic Gonadotropin, Qual NEG (NEG) Laboratory results reviewed by me. Medications Administered Medications (Trade) Dose Ordered Sig/Radha Route Start Time Stop Time Status Last Admin Dose Admin Ketorolac Tromethamine (Toradol Inj) 30 mg NOW STAT IV 09/24/17 22:34 09/24/17 22:36 DC 09/24/17 23:07 30 MG Promethazine HCl 12.5 mg/Sodium Chloride 50.5 ml @ 202 mls/hr 2234 IV 09/24/17 22:34 09/24/17 23:01 DC 09/24/17 23:08 202 MLS/HR Hydromorphone HCl (Dilaudid Inj) 1 mg STK-MED ONCE .ROUTE 09/24/17 23:00 09/24/17 23:01 DC 09/24/17 23:08 1 MG Ondansetron HCl (Zofran Inj) 4 mg NOW STAT IV 09/25/17 00:24 09/25/17 00:25 DC 09/25/17 00:29 4 MG Hydromorphone HCl (Dilaudid Inj) 1 mg STK-MED ONCE .ROUTE 09/25/17 00:26 09/25/17 00:27 DC 09/25/17 00:29 1 MG Ondansetron HCl (ZOFRAN ODT 4MG Home Pack) 1 homepack UD ONCE PO 09/25/17 01:15 09/25/17 01:16 DC 09/25/17 01:28 1 HOMEPACK Acetaminophen/ Hydrocodone Bitart ([place] 5/325mg Home Pack) 1 homepack UD ONCE PO 09/25/17 01:15 09/25/17 01:16 DC 09/25/17 01:27 1 HOMEPACK ED Course 2232: The patient was evaluated in room B2. A complete history and physical exam was performed. 2234: Toradol Inj 30 mg IV, Promethazine HCl 12.5 mg IV. 2245: Dilaudid Inj 1 mg IV. 2302: The patient is getting her IV placed. 2330: Ioversol 125 ml IV. 0024: Zofran Inj 4 mg IV. 0026: Dilaudid Inj 1 mg .ROUTE. 0039: The patient feels better and would like to go home. 0115: Hydrocodone Bitart/Acetaminophen 1 homepack PO, Ondansetron HCl 1 homepack PO. 0122: Reevaluated the patient. Discussed results and discharge instructions: She verbalized understanding and agreement. The patient is ready for discharge. Medical Decision Differential diagnoses include: hemoperitoneum, free air, pancreatitis, bowel obstruction, renal colic, UTI, surgical site infection, pneumonia. There is no leukocytosis or concerning anemia. No significant electrolyte abnormality, kidney failure, hepatitis or pancreatitis. Urinalysis does not show hematuria or infection. testing is negative. Chest film shows no free air, mediastinal widening, there was no pneumothorax. Abdominal and pelvis CT shows evidence for recent gallbladder surgery, there was no bowel obstruction or free air, constipation was noted. The patient was aggressively managed, she seemed to be in quite a bit of pain. She received IV Toradol, IV Phenergan and IV Dilaudid. She was given IV saline. She eventually received IV Zofran for additional nausea control. She was given another dose of IV Dilaudid. The patient feels markedly improved, she is texting on her phone. She does feel comfortable with discharge home, I think this is reasonable. The cause for the pain is not clear. Possibly, the constipation is playing a factor in her discomfort especially given the recent surgery. She will be discharged on Senokot. She can try some [place] for severe discomfort, Zofran for nausea. She was encouraged to stick to a very bland and simple diet. She should return here for worsening symptoms or if not improving. She will see her surgeon for a recheck next week. Medication Reconcilliation Current Medication List: was personally reviewed by me Blood Pressure Screening Patient's blood pressure: Elevated blood pressure Blood pressure disposition: Elevated BP felt to be situational Impression Primary Impression: Right upper quadrant abdominal pain Additional Impressions: Vomiting Constipation Status post cholecystectomy Scribe Attestation The scribe's documentation has been prepared under my direction and personally reviewed by me in its entirety. I confirm that the note above accurately reflects all work, treatment, procedures, and medical decision making performed by me. Departure Information Dispostion Home / Self-Care Prescriptions Sennosides-Docusate Sodium (SENOKOT S) 1 Tab Tab 2 TAB PO BID for 10 Days, #40 TAB Prov: Justo Andrea M.D. 09/25/17 Referrals Augusta Barakat (PCP) Forms Call Back Authorization, HOME CARE DOCUMENTATION FORM, IMPORTANT VISIT INFORMATION Patient Instructions [facility] Additional Instructions bland diet---crackers, soup, toast try norco 1 tab every 4 hours for pain zofran 1 tab every 6 hours for nausea senokot 2 tab 2x per day to help constipation return for fever or if worsening follow with your surgeon as an outpt lab testing and imaging was all ok today Problem Qualifiers
--- NOTE | 2017-09-24 22:49 | DIAGNOSTIC IMAGING REPORT ---
CHEST ONE VIEW PORTABLE CLINICAL HISTORY: ABDOMINAL PAIN/GI pain COMPARISON STUDY: 07/12/2017 FINDINGS: The bones soft tissues and hemidiaphragms are normal. The cardiomediastinal silhouette is normal. The lungs are clear. The pulmonary vasculature is normal. IMPRESSION: Negative chest. The above report was generated using voice recognition software. It may contain grammatical, syntax or spelling errors. Electronically signed by: Nikolas Petersen M.D. 09/24/2017 10:48 PM Dictated Date/Time: 09/24/2017 10:47 PM
[2017-09-24 22:55] LABS: URINE APPEARANCE CLEAR (CLEAR); URINE BILIRUBIN NEG (NEG); URINE COLOR YELLOW; URINE NITRITE NEG (NEG); URINE SPECIFIC GRAVITY 1.014 (1.000-1.030); UROBILINOGEN NEG (NEG); ZZUR CULT IF INDIC CLEAN CATCH NO
[2017-09-24 22:57] LABS: MANUAL MICROSCOPIC REQUIRED? NO; REVIEW REQ? NO
[2017-09-24] MEDS ORDERED: HYDROmorphone INJ 1 MG/ML SYR ONE (23:00)
[2017-09-24] MEDS ORDERED: OXYC1CAP5 PO (23:09)
[2017-09-24] MEDS ORDERED: OMEP40CA41 PO (23:09)
[2017-09-24 23:17] LABS: BASO % 0.1 %; BASO ABS # 0.01 K/uL (0-0.2); COMPLETE YES; EOS % 1.4 %; HEMATOCRIT 35.8 % (37-47); IG% 0.1 %; LYMPH % 15.5 %; LYMPH ABS # 1.24 K/uL (1.2-3.4); MEAN CORPUSCULAR HEMOGLOBIN 31.6 pg (25-34); MEAN CORPUSCULAR HGB CONC 34.4 g/dl (32-36); MEAN PLATELET VOLUME 9.5 fL (7.4-10.4); MONO % 5.5 %; NEUT % 77.4 %; PLATELET COUNT 180 K/uL (130-400); RED BLOOD COUNT 3.89 M/uL (4.2-5.4); WHITE BLOOD COUNT 7.98 K/uL (4.8-10.8)
[2017-09-24 23:24] LABS: PROTHROMBIN TIME (PATIENT) 10.2 SECONDS (9.0-12.0)
[2017-09-24 23:30] LABS: ALT/SGPT 26 U/L (12-78); BLOOD UREA NITROGEN 13 mg/dl (7-18); BUN/CREATININE RATIO 18.1 (10-20); CALCIUM 8.4 mg/dl (8.5-10.1); CARBON DIOXIDE 25 mmol/L (21-32); CHLORIDE 107 mmol/L (98-107); CREATININE 0.72 mg/dl (0.60-1.20); GLUCOSE 123 mg/dl (70-99); POTASSIUM 3.8 mmol/L (3.5-5.1); SODIUM 137 mmol/L (136-145)
[2017-09-24] MEDS ORDERED: OPTIRAY 320 IV PRN (23:30)
[2017-09-24 23:33] LABS: ALB/GLOB RATIO 0.9 (0.9-2); ALKALINE PHOSPHATASE 68 U/L (45-117); AST/SGOT 14 U/L (15-37)
[2017-09-24 23:35] LABS: PREG INTERNAL NEGATIVE QC NEG CLEAR BACKGROUND; PREG INTERNAL POSITIVE QC POS CONTROL LINE
[2017-09-25] MEDS ORDERED: ONDANSETRON INJ 2 MG/ML 2 ML VIAL IV STA (00:24)
[2017-09-25] MEDS ORDERED: HYDROmorphone INJ 1 MG/ML SYR ONE (00:26)
[2017-09-25] MEDS ORDERED: NORCO 5/325MG HOME PACK PO ONE (01:15)
[2017-09-25] MEDS ORDERED: ONDANSETRON HOME PACK 4MG OD TAB PO ONE (01:15)
[2017-09-25] MEDS ORDERED: SENN-65 PO (01:19)
[2017-09-25 01:30] VITALS: BP 130/78; PULSE 104; O2SAT 98
--- NOTE | 2017-09-25 05:40 | DIAGNOSTIC IMAGING REPORT ---
ABD/PELVIS IV CONTRAST ONLY CT DOSE: 458.85 mGy.cm HISTORY: Pain ABD PAIN, POSS OBSTRUCTION, IV CONTRAST ONLY TECHNIQUE: Multiaxial CT images of the abdomen and pelvis were performed following the use of intravenous contrast. A dose lowering technique was utilized adhering to the principles of ALARA. COMPARISON STUDY: 07/12/2017 FINDINGS: Lung bases are clear. Liver spleen and pancreas are unremarkable. Small hiatal hernia. Kidneys enhance uniformly. Pancreas is unremarkable. Prior cholecystectomy. Abdominal aorta is normal in course and caliber. Increased fecal load throughout the colon. There is a component of fecal stasis. 2 cm left ovarian follicular cysts. Trace free fluid within the pelvic cul-de-sac most likely physiologic. IMPRESSION: 1. Increased fecal load throughout the colon consistent with fecal stasis. 2. 2 cm left ovarian follicular cyst. 3. Nonobstructive bowel pattern. 4. Normal appendix. 5. Prior cholecystectomy. The above report was generated using voice recognition software. It may contain grammatical, syntax or spelling errors. Electronically signed by: Nikolas Petersen M.D. 09/25/2017 5:39 AM Dictated Date/Time: 09/25/2017 5:37 AM
== END 2017-09-25 01:32 | disposition home or self-care (01) ==
LOC: C.EDB 22:25
DX: R10.11 Right upper quadrant pain (principal); R11.10 Vomiting, unspecified; K59.00 Constipation, unspecified; Z98.890 Other specified postprocedural states; G43.909 Migraine, unspecified, not intractable, without status migrainosus; M41.9 Scoliosis, unspecified; Z87.440 Personal history of urinary (tract) infections; D69.6 Thrombocytopenia, unspecified; D64.9 Anemia, unspecified; Z83.3 Family history of diabetes mellitus; Z82.49 Family history of ischemic heart disease and other diseases of the circulatory system; Z84.1 Family history of disorders of kidney and ureter; Z79.899 Other long term (current) drug therapy